=== PATIENT | female | born 1980 | race Caucasian/White ===

== ENCOUNTER 2019-01-08 18:17 | Inpatient (IN) | payer MEDICAID ==
[~2019-01-08] VITALS: Ht 152.4 cm; Wt 66.7 kg
[~2019-01-08 18:17] MED LIST: LABE200T25 PO; NIFE30TA2 PO; PREN-93 PO
[2019-01-08] MEDS ORDERED: MAGNESIUM SULFATE 4 GM/100 ML 100 ML ONE (19:45)
[2019-01-08] MEDS ORDERED: LABETALOL HCL 20MG INJ IV PRN ×4 (20:00→22:00)
[2019-01-08] MEDS ORDERED: BETAMET NA PHOS/AC(6 MG/ML) 2 ML INJ SYG IM SCH (20:00)
[2019-01-08] MEDS ORDERED: NACL 0.9% 3 ML SYG IV SCH (20:00)
[2019-01-08] MEDS ORDERED: hydrALAzine 20 MG INJ IV PRN ×2 (20:00→22:00)
[2019-01-08] MEDS ORDERED: CA GLUCONATE (GM) 10% 10ML INJ IV PRN (20:00)
[2019-01-08] MEDS ORDERED: MAGNESIUM SULFATE 4 GM/100 ML 100 ML IV ONE (20:00)
[2019-01-08] MEDS ORDERED: LABETALOL HCL 20MG INJ IV ONE (20:00)
[2019-01-08] MEDS: LACTATED RINGER'S 1,000 ML IV SCH (20:04)
[2019-01-08] MEDS: MAGNESIUM SULFATE 20 GM/500 ML 500 ML IV SCH (20:28)
[2019-01-08] MEDS ORDERED: ONDANSETRON 4 MG INJ IV PRN (22:00)
[2019-01-08] MEDS ORDERED: hydrALAzine 20 MG INJ IV ONE (22:00)
[2019-01-08 22:36] VITALS: BP 228/112; PULSE 94; RESP 18
[2019-01-08 22:37] VITALS: Ht 152.4 cm; Wt 66.7 kg
[2019-01-09] MEDS ORDERED: ACETAMINOPHEN 500 MG TAB PO PRN (01:30)
[2019-01-09] MEDS ORDERED: DIPHENHYDRAMINE 50 MG CAP PO ONE (01:30)
[2019-01-09] MEDS: LACTATED RINGER'S 1,000 ML IV SCH ×2 (01:40→15:32)
[2019-01-09] MEDS ORDERED: BETAMET NA PHOS/AC(6 MG/ML) 2 ML INJ SYG IM SCH (09:00)
[2019-01-09] MEDS ORDERED: CEFAZOLIN 2 GM/50 ML (PMX) 50 ML IVPB ONE (10:30)
[2019-01-09] MEDS ORDERED: MISOPROSTOL 200 MCG TAB PR PRN ×2 (11:00→21:30)
[2019-01-09] MEDS ORDERED: OXYTOCIN 30 UNITS/LR 500 ML IV SCH ×2 (11:00→21:26)
[2019-01-09] MEDS ORDERED: CARBOPROST 250 MCG INJ IM PRN ×2 (11:00→21:30)
[2019-01-09] MEDS ORDERED: OXYTOCIN 30 UNITS/LR 500 ML IV PRN ×2 (11:00→21:30)
[2019-01-09] MEDS ORDERED: METHYLERGONOVINE 0.2 MG INJ IM PRN ×2 (11:00→21:30)
[2019-01-09] MEDS ORDERED: FENTAnyl 50 MCG/ML VIAL ONE (11:56)
[2019-01-09] MEDS ORDERED: OXYTOCIN 10 UNIT INJ ONE (11:56)
[2019-01-09] MEDS ORDERED: morphine SULFATE/PF (10 MG/10 ML) INJ ONE (11:57)
[2019-01-09] MEDS ORDERED: EPHEDrine 25 MG/5 ML SYG ONE (12:44)
[2019-01-09] MEDS ORDERED: MISOPROSTOL 200 MCG TAB PO ONE (13:00)
[2019-01-09] MEDS: MAGNESIUM SULFATE 20 GM/500 ML 500 ML IV SCH (15:27)
[2019-01-09] MEDS: NIFEdipine (XL) 30 MG TAB PO SCH (15:28)
[2019-01-09] MEDS ORDERED: LACTATED RINGER'S 250 ML IV ONE (16:30)
[2019-01-09 20:10] VITALS: BP 159/88; PULSE 95; RESP 18
[2019-01-09] MEDS: DEXTROSE 5%-LR 1,000 ML IV SCH (21:26)
[2019-01-09] MEDS ORDERED: METHYLERGONOVINE 0.2 MG TAB PO PRN (21:30)
[2019-01-09] MEDS ORDERED: LANOLIN HPA 1 PKT TOP PRN (21:30)
[2019-01-09] MEDS ORDERED: MAGNESIUM HYDROXIDE 30ML CUP PO PRN (21:30)
[2019-01-09 21:50] VITALS: BP 158/99; PULSE 94; RESP 18
[2019-01-09] MEDS ORDERED: DIPHENHYDRAMINE 50 MG INJ IV PRN (22:00)
[2019-01-09] MEDS ORDERED: NALOXONE (0.4 MG/ML) INJ IV PRN (22:00)
[2019-01-09] MEDS ORDERED: NALBUPHINE HCL (10 MG/1 ML) INJ IV PRN (22:00)
[2019-01-09] MEDS ORDERED: TRIMETHOBENZAMIDE 100 MG/ML VIAL IM PRN (22:00)
[2019-01-09] MEDS ORDERED: morphine 2 MG INJ IV PRN ×2 (22:00)
[2019-01-09] MEDS: IBUPROFEN 800 MG TAB PO SCH (22:00)
[2019-01-09] MEDS ORDERED: KETOROLAC 30 MG INJ IV PRN (22:00)
[2019-01-09] MEDS ORDERED: ONDANSETRON 4 MG INJ IV PRN (22:00)
[2019-01-09 22:50] VITALS: BP 154/94; PULSE 94; RESP 19
[2019-01-09 23:50] VITALS: BP 152/85; PULSE 88; RESP 18
[2019-01-10] VITALS (23 sets, daily range): BP systolic 127–163; BP diastolic 67–97; PULSE 77–93; RESP 16–18
[2019-01-10] MEDS: LACTATED RINGER'S 1,000 ML IV SCH ×3 (00:34→21:12)
[2019-01-10] MEDS: DEXTROSE 5%-LR 1,000 ML IV SCH ×3 (05:26→21:26)
[2019-01-10] MEDS: IBUPROFEN 800 MG TAB PO SCH ×3 (06:00→21:16)
[2019-01-10] MEDS: NIFEdipine (XL) 30 MG TAB PO SCH (09:11)
[2019-01-10] MEDS: SENNA/DOCUSATE NA (8.6MG/50MG) TAB PO SCH ×2 (09:11→21:12)
[2019-01-10] MEDS ORDERED: DIPHTH/TET/ACEL PERTUSS (ADULT) 0.5 ML VIAL IM* ONE (11:00)
[2019-01-10] MEDS ORDERED: HYDROCODONE/APAP (5/325) TAB PO PRN (11:00)
[2019-01-10] MEDS ORDERED: LABETALOL 100 MG TAB PO SCH (12:00)
[2019-01-10] MEDS: MAGNESIUM SULFATE 20 GM/500 ML 500 ML IV SCH (13:04)
[2019-01-10] MEDS: HYDROCODONE/APAP (5/325) TAB PO SCH ×2 (14:00→21:16)
[2019-01-10] MEDS: LABETALOL 200 MG TAB PO SCH ×2 (19:24→21:15)
[2019-01-11] VITALS (13 sets, daily range): BP systolic 102–148; BP diastolic 58–87; PULSE 75–86; RESP 16–20
[2019-01-11] MEDS: MAGNESIUM SULFATE 20 GM/500 ML 500 ML IV SCH (04:30)
[2019-01-11] MEDS: DEXTROSE 5%-LR 1,000 ML IV SCH (05:26)
[2019-01-11] MEDS: HYDROCODONE/APAP (5/325) TAB PO SCH ×3 (06:00→21:46)
[2019-01-11] MEDS: IBUPROFEN 800 MG TAB PO SCH ×3 (06:03→21:46)
[2019-01-11] MEDS: LACTATED RINGER'S 1,000 ML IV SCH (07:01)
[2019-01-11] MEDS: SENNA/DOCUSATE NA (8.6MG/50MG) TAB PO SCH ×2 (08:51→21:21)
[2019-01-11] MEDS: LABETALOL 200 MG TAB PO SCH ×2 (08:52→21:21)
[2019-01-11] MEDS: NIFEdipine (XL) 60 MG TAB PO SCH (08:52)
[2019-01-12] VITALS: BP 114/67; PULSE 86; RESP 18
[2019-01-12 04:15] VITALS: BP 132/75; PULSE 85; RESP 18
[2019-01-12] MEDS: HYDROCODONE/APAP (5/325) TAB PO SCH ×3 (06:00→22:45)
[2019-01-12] MEDS: IBUPROFEN 800 MG TAB PO SCH ×3 (06:08→22:10)
[2019-01-12 08:30] VITALS: BP 140/68; PULSE 78; RESP 18
[2019-01-12] MEDS: SENNA/DOCUSATE NA (8.6MG/50MG) TAB PO SCH ×2 (08:36→20:53)
[2019-01-12] MEDS: NIFEdipine (XL) 60 MG TAB PO SCH (08:37)
[2019-01-12] MEDS: LABETALOL 200 MG TAB PO SCH ×2 (08:37→20:53)
[2019-01-12] MEDS ORDERED: MEASLES,MUMPS,RUBELLA VACCINE INJ SC* ONE (09:00)
[2019-01-12] MEDS ORDERED: DIPHTH/TET/ACEL PERTUSS (ADULT) 0.5 ML VIAL IM* ONE (09:00)
[2019-01-12 09:30] VITALS: BP 130/62; RESP 18
[2019-01-12 15:52] VITALS: BP 139/78; PULSE 91; RESP 16
[2019-01-12 20:40] VITALS: BP 149/76; PULSE 91; RESP 18
[2019-01-13 00:48] VITALS: BP 140/82; PULSE 92; RESP 18
[2019-01-13 04:00] VITALS: BP 143/82; PULSE 88; RESP 18
[2019-01-13] MEDS: IBUPROFEN 800 MG TAB PO SCH ×3 (05:39→21:20)
[2019-01-13] MEDS: HYDROCODONE/APAP (5/325) TAB PO SCH ×3 (06:00→21:21)
[2019-01-13 09:15] VITALS: BP 148/88; PULSE 84; RESP 16
[2019-01-13] MEDS: SENNA/DOCUSATE NA (8.6MG/50MG) TAB PO SCH ×2 (09:31→21:20)
[2019-01-13] MEDS: NIFEdipine (XL) 60 MG TAB PO SCH (09:34)
[2019-01-13] MEDS: LABETALOL 200 MG TAB PO SCH ×2 (09:34→21:22)
[2019-01-13 20:30] VITALS: BP 142/82; PULSE 86; RESP 18
[2019-01-13 22:30] VITALS: BP 136/77; PULSE 84
[2019-01-14 03:55] VITALS: BP 137/92; PULSE 83; RESP 18
[2019-01-14] MEDS: HYDROCODONE/APAP (5/325) TAB PO SCH ×2 (06:00→14:18)
[2019-01-14] MEDS: IBUPROFEN 800 MG TAB PO SCH ×2 (06:00→14:18)
[2019-01-14 08:45] VITALS: BP 147/87; PULSE 88
[2019-01-14] MEDS: LABETALOL 200 MG TAB PO SCH (08:49)
[2019-01-14] MEDS: SENNA/DOCUSATE NA (8.6MG/50MG) TAB PO SCH (08:49)
[2019-01-14] MEDS: NIFEdipine (XL) 60 MG TAB PO SCH (08:50)
[2019-01-14 11:57] VITALS: BP 122/76; PULSE 92; RESP 18
[2019-01-14 16:10] VITALS: BP 132/80; RESP 18
== END 2019-01-14 16:30 | disposition home or self-care (01) | DRG 786 ==
LOC: OBT 18:17 → L-D 18:19 → OBT 19:41 → L-D 01-09 11:17 → PP1 01-09 18:57 → L-D 01-09 19:27 → PP1 01-09 20:37
PROVIDERS: ADMIT Obstetrics & Gynecology; ATTEND Obstetrics & Gynecology
PROC: 10D00Z1 Extraction of Products of Conception, Low, Open Approach (ICD-10-PCS; principal; 2019-01-09 10:30)
DX: O14.13 Severe pre-eclampsia, third trimester (principal); O45.93 Premature separation of placenta, unspecified, third trimester; Z3A.28 28 weeks gestation of pregnancy; Z37.0 Single live birth
CPT/HCPCS: 36415; 76705; 76815; 76818; 80053; 80069; 80076; 81001; 82803; 83615; 83735; 83789; 84560; 85025; 85384; 85610; 85730; 86592; 86850; 86900; 86901; 87340; 88307; 90715; 99464; G0463; J0360; J0690; J0702; J1200; J1885; J2274; J2405; J2590; J3010; J3475; J7120; J7121